=== PATIENT | male | born 1945 | race Caucasian/White ===

== ENCOUNTER 2018-04-13 07:59 | Observation (INO) | payer MEDICAID ==
--- NOTE | 2018-04-13 08:37 | ED PDOC ---
Arrival/HPI - General Historian: Patient, Spouse - History of Present Illness Narrative History of Present Illness (Text): 04/13/18 08:34 Patient is a 72 year old male with past medical history of Hypertension and Diabetes Mellitus who presents to the Emergency department for multiple episodes of coffee ground emesis. Patients spouse is at the bedside supplementing the history. She states that last night patient was complaining of epigastric pain and had multiple episodes of vomiting. Describes the vomitus as coffee ground. States that this has never happened to him before. Denies any recent NSAID use. He is currently recieveing antibiotics and being treated for pneumonia by his PMD. PMD: Dr Rodríguez Time/Duration: 4-6 hours Symptom Course: Unchanged Severity Level: 7, Moderate <Lexi Miles - Last Filed: 04/13/18 12:33> <Hal Mayo - Last Filed: 04/13/18 18:01> - General Chief Complaint: Abdominal Pain Past Medical History - Cardiac Hx Hypertension: Yes - Pulmonary Hx Asthma: Yes - Psychiatric Hx Substance Use: No <Lexi Miles - Last Filed: 04/13/18 12:33> - Provider Review Nursing Documentation Reviewed: Yes <Hal Mayo - Last Filed: 04/13/18 18:01> Family/Social History Smoking Status: Never Smoked Hx Alcohol Use: No Hx Substance Use: No <Lexi Miles - Last Filed: 04/13/18 12:33> - Physician Review Nursing Documentation Reviewed: Yes Family/Social History: No Known Family HX <Hal Mayo - Last Filed: 04/13/18 18:01> Allergies/Home Meds <Lexi Miles - Last Filed: 04/13/18 12:33> <Hal Mayo - Last Filed: 04/13/18 18:01> Allergies/Adverse Reactions: Allergies No Known Allergies Allergy (Verified 04/13/18 08:03) Home Medications: Home Meds Medication Instructions Recorded Confirmed RX: Lisinopril [Zestril] 10 mg PO DAILY 01/29/16 04/13/18 Review of Systems - Review of Systems Constitutional: Fatigue. absent: Fevers Eyes: absent: Vision Changes ENT: absent: Hearing Changes Respiratory: absent: SOB, Cough Cardiovascular: absent: Chest Pain, Palpitations Gastrointestinal: Abdominal Pain, Nausea, Vomiting. absent: Constipation, Diarrhea, Hematochezia Genitourinary Male: absent: Dysuria Skin: absent: Rash Neurological: absent: Headache <JdLexi - Last Filed: 04/13/18 12:33> Physical Exam Vital Signs Reviewed: Yes Vital Signs Temp Pulse Resp BP Pulse Ox 04/13/18 08:01 98.1 F 106 H 20 145/85 93 L Temperature: Afebrile Blood Pressure: Hypertensive Pulse: Tachycardic Respiratory Rate: Normal Pain Distress: Moderate Mental Status: Positive for: Alert and Oriented X 3 Finger Stick Blood Glucose: 151 - Systems Exam Head: Present: Atraumatic, Normocephalic Pupils: Present: PERRL Extroacular Muscles: Present: EOMI Conjunctiva: Present: Normal Mouth: Present: Moist Mucous Membranes Neck: Present: Normal Range of Motion Respiratory/Chest: Present: Other (course breath sounds bilaterally). No: Respi ratory Distress, Accessory Muscle Use, Wheezes, Rales, Retracting Cardiovascular: Present: Regular Rate and Rhythm, Normal S1, S2 Abdomen: Present: Normal Bowel Sounds, Other (abdomen is soft). No: Tenderness, Distention, Peritoneal Signs, Rebound, Guarding Back: Present: Normal Inspection. No: CVA Tenderness Upper Extremity: Present: Normal Inspection, Normal ROM. No: Cyanosis, Edema Lower Extremity: Present: Normal Inspection, Normal ROM Skin: Present: Warm, Dry, Normal Color. No: Rashes Psychiatric: Present: Alert, Oriented x 3 <Lexi Miles - Last Filed: 04/13/18 12:33> Vital Signs Temp Pulse Resp BP Pulse Ox 04/13/18 10:23 105 H 16 146/84 99 04/13/18 08:01 98.1 F 106 H 20 145/85 93 L <Hal Mayo - Last Filed: 04/13/18 18:01> Medical Decision Making ED Course and Treatment: 04/13/18 08:38 Patient seen and examined at bedside. Patient reports having multiple episodes of coffee ground emesis that started last night. We will order CBC, CMP, Coags, Type and Screen, Lipase, Troponin, EKG, CXR, CT abd/pelvis with IV contrast, Protonix 80mg IVP. 04/13/18 10:[address] scan. Reports still having epigastric pain. Will order Morphine 2mg IVP. 04/13/18 11:40 Call placed to Hospitalist for admission. Awaiting call back. 04/13/18 11:43 Discussed case with Hospitalist. Will admit the patient to remote telemetry. - RAD Interpretation Narrative RAD Interpretations (Text): 04/13/18 10:56 CXR: borderline cardiomegaly, mild bibasilar atelectasis, elevation of right hemidiaphragm 04/13/18 11:47 CT abd/pelvis: Right renal cyst. Nonobstructing bilateral renal calculi. Prostate gland is enlarged. Recommend correlation with PSA. Radiology Orders: 04/13/18 08:28 CHEST PORTABLE [RAD] Stat 04/13/18 08:30 ABD & PELVIS IV CONTRAST ONLY [CT] Stat - EKG Interpretation EKG Interpretation (Text): 04/13/18 08:41 EKbpm, NSR with 1st degree AV block, no ST-T wave changes Interpreted by ED Physician: Yes Type: 12 lead EKG - Medication Orders Current Medication Orders: Discontinued Medications Pantoprazole Sodium (Protonix Inj) 80 mg IVP STAT STA Stop: 04/13/18 08:26 Last Admin: 04/13/18 08:32 Dose: 80 mg IVP Administration Document 04/13/18 08:32 EB (Rec: 04/13/18 08:32 EB [id number]) Charges for Administration # of IVP Administrations 1 <Lexi Miles - Last Filed: 04/13/18 12:33> ED Course and Treatment: In agreement with resident note, which includes further HPI details. Patient was seen and evaluated with resident, came up with plan and treatment together. 72 y/o M p/w coffee ground emesis. On exam, epigastric tenderness. - Lab Interpretations Lab Results: 04/13/18 08:15 04/13/18 08:15 Lab Results 04/13/18 08:15: PT 10.8, INR 0.94, APTT 24.7 L 04/13/18 08:15: Sodium 142, Potassium 4.0, Chloride 105, Carbon Dioxide 27, Anion Gap 13, BUN 14, Creatinine 0.8, Est GFR ( Amer) > 60, Est GFR (Non- Af Amer) > 60, Random Glucose 145 H, Calcium 9.4, Total Bilirubin 0.2, AST 29, ALT 43, Alkaline Phosphatase 55, Troponin I < 0.01, Total Protein 7.6, Albumin 4.4, Globulin 3.2, Albumin/Globulin Ratio 1.4, Lipase 101 04/13/18 08:15: WBC 5.8, RBC 4.78, Hgb 13.1 L, Hct 40.7 L, MCV 85.1, MCH 27.4, MCHC 32.2, RDW 13.3, Plt Count 170, MPV 11.5 H, Gran % 66.2, Lymph % (Auto) 29.2, [place] % (Auto) 3.0, Eos % (Auto) 1.4 L, Baso % (Auto) 0.2, Gran # 3.82, Lymph # (Auto) 1.7, [place] # (Auto) 0.2, Eos # (Auto) 0.1, Baso # (Auto) 0.01 - RAD Interpretation Radiology Orders: 04/13/18 08:28 CHEST PORTABLE [RAD] Stat 04/13/18 08:30 ABD & PELVIS IV CONTRAST ONLY [CT] Stat - Medication Orders Current Medication Orders: Sodium Chloride (Sodium Chloride 0.9%) 1,000 mls @ 75 mls/hr IV .[id number] KARINA Last Admin: 04/13/18 11:54 Dose: 75 mls/hr eMAR Start Stop Document 04/13/18 11:54 EB (Rec: 04/13/18 11:56 [id number] Intravenous Solution Start Date 04/13/18 Start Time 11:54 Lisinopril (Zestril) 10 mg PO DAILY KARINA Pantoprazole Sodium (Protonix Inj) 40 mg IVP Q12 KARINA Discontinued Medications Morphine Sulfate (Morphine) 2 mg IVP STAT STA Stop: 04/13/18 10:35 Last Admin: 04/13/18 10:42 Dose: 2 mg MAR Pain Assessment Document 04/13/18 10:42 EB (Rec: 04/13/18 10:42 [facility] Pain Reassessment Is this a pain reassessment? No Sleep Is patient sleeping during reassessment? No Presence of Pain Presence of Pain Yes Pain Scale Used Protocol: PSCALES Pain Scale Used Numeric Description Intensity of Pain at present 8 IVP Administration Document 04/13/18 10:42 EB (Rec: 04/13/18 10:[address]) Charges for Administration # of IVP Administrations 1 Re-Assess: HILARY Pain Assessment Document 04/13/18 11:42 EB (Rec: 04/13/18 11:[address]) Pain Reassessment Is this a pain reassessment? Yes Sleep Is patient sleeping during reassessment? No Presence of Pain Presence of Pain Yes Pain Scale Used Protocol: PSCALES Pain Scale Used Numeric Description Intensity of Pain at present 2 Ondansetron HCl (Zofran Inj) 4 mg IVP STAT STA Stop: 04/13/18 09:25 Last Admin: 04/13/18 09:38 Dose: 4 mg IVP Administration Document 04/13/18 09:38 EB (Rec: 04/13/18 09:[address]) Charges for Administration # of IVP Administrations 1 Pantoprazole Sodium (Protonix Inj) 80 mg IVP STAT STA Stop: 04/13/18 08:26 Last Admin: 04/13/18 08:32 Dose: 80 mg IVP Administration Document 04/13/18 08:32 EB (Rec: 04/13/18 08:[address]) Charges for Administration # of IVP Administrations 1 <Hal Mayo - Last Filed: 04/13/18 18:01> Disposition/Present on Arrival - Present on Arrival Any Indicators Present on Arrival: No History of DVT/PE: No History of Uncontrolled Diabetes: No Urinary Catheter: No History of Decub. Ulcer: No History Surgical Site Infection Following: None - Disposition Have Diagnosis and Disposition been Completed?: Yes Disposition Time: 11:59 Patient Plan: Admission, Telemetry <Lexi Miles - Last Filed: 04/13/18 12:33> <Hal Mayo - Last Filed: 04/13/18 18:01> - Disposition Diagnosis: GI bleed Disposition: HOSPITALIZED Patient Problems: Current Active Problems Problem Status Onset GI bleed Acute Condition: FAIR
[2018-04-13 08:56] LABS: BASO # 0.01 K/mm3 (0.0-2.0); BASO % 0.2 % (0.0-3.0); EOS # 0.1 (0.0-0.7); EOS % 1.4 % (1.5-5.0); GRAN # 3.82 (1.4-6.5); GRAN % 66.2 % (50.0-68.0); HEMOGLOBIN 13.1 g/dL (14.0-18.0); LYMPH # 1.7 (1.2-3.4); LYMPH % 29.2 % (22.0-35.0); MEAN CELL VOLUME 85.1 fl (80.0-105.0); MEAN CORPUSCULAR HEMOGLOBIN 27.4 pg (25.0-35.0); MEAN CORPUSCULAR HGB CONC 32.2 g/dl (31.0-37.0); MEAN PLATELET VOLUME 11.5 fl (7.0-11.0); MONO # 0.2 (0.1-0.6); RBC 4.78 10^6/uL (3.5-6.1); RED CELL DISTRIBUTION WIDTH 13.3 % (11.5-14.5); WHITE BLOOD COUNT 5.8 10^3/uL (4.5-11.0)
[2018-04-13 09:00] LABS: INR 0.94; PARTIAL THROMBOPLASTIN TIME 24.7 Seconds (25.1-36.5); PROTHROMBIN TIME 10.8 SECONDS (9.4-12.5)
[2018-04-13 09:03] LABS: ALB/GLOB RATIO 1.4 (1.1-1.8); ALBUMIN 4.4 g/dL (3.0-4.8); ALT/SGPT 43 U/L (7-56); AST/SGOT 29 U/L (17-59); BLOOD UREA NITROGEN 14 mg/dL (7-21); CALCIUM 9.4 mg/dL (8.4-10.5); GFR NON-AFRICAN AMERICAN > 60; LIPASE 101 U/L (23-300)
[2018-04-13 09:20] LABS: TROPONIN I < 0.01 ng/mL
[2018-04-13] MEDS ORDERED: Iohexol 350 MG/100 ML VIAL ONE (09:23)
[2018-04-13] MEDS ORDERED: Morphine 2 mg/ml ISec IVP STA (10:34)
--- NOTE | 2018-04-13 10:54 | RAD ---
HISTORY: dyspnea, coarse breath sounds COMPARISON: None available. TECHNIQUE: Chest, one view. FINDINGS: LUNGS: Mild bibasilar atelectasis. Please note that chest x-ray has limited sensitivity for the detection of pulmonary masses. PLEURA: No significant pleural effusion identified. No definite pneumothorax . CARDIOVASCULAR: Borderline cardiomegaly. No significant atherosclerotic calcification present. OSSEOUS STRUCTURES: Degenerative changes. VISUALIZED UPPER ABDOMEN: Elevation of the right hemidiaphragm. OTHER FINDINGS: None. IMPRESSION: Borderline cardiomegaly. Mild bibasilar atelectasis. Elevation of the right hemidiaphragm.
--- NOTE | 2018-04-13 11:10 | CT ---
Date of service: 04/13/2018 PROCEDURE: CT Abdomen and Pelvis with contrast HISTORY: gi bleed, epigastric pain COMPARISON: CT abdomen and pelvis with IV contrast performed 01/29/16 TECHNIQUE: Contrast dose: 100 mL Omnipaque 350 Radiation dose: Total exam DLP = 262.5 mGy-cm. This CT exam was performed using one or more of the following dose reduction techniques: Automated exposure control, adjustment of the mA and/or kV according to patient size, and/or use of iterative reconstruction technique. FINDINGS: LOWER THORAX: Bibasilar atelectasis. No visible pleural effusion or pneumothorax. Moderate hiatal hernia/distal esophageal wall thickening, and evidence of gastroesophageal reflux. LIVER: Unremarkable. GALLBLADDER AND BILE DUCTS: Unremarkable. PANCREAS: Unremarkable. SPLEEN: Unremarkable. ADRENALS: Unremarkable. KIDNEYS AND URETERS: The kidneys enhance symmetrically. No hydronephrosis or obstructing calculus identified. Tiny nonobstructing bilateral renal calculi measuring up to 4 mm. Right renal cyst. VASCULATURE: No aortic aneurysm. Atherosclerotic calcification or mural plaque present. BOWEL: Stomach is nondistended. Lack of oral contrast limits evaluation for bowel pathology. Bowel loops appear within normal limits of caliber without evidence of obstruction. APPENDIX: The appendix appears within normal limits of caliber. No secondary signs of acute appendicitis. PERITONEUM: No significant free fluid. No definite free air. LYMPH NODES: No bulky adenopathy identified. BLADDER: Unremarkable. REPRODUCTIVE: Prostate gland measures approximately 3.7 x 4.6 cm. BONES: Degenerative changes of the spine. Compression fracture deformity L5. OTHER FINDINGS: Small fat containing umbilical hernia. IMPRESSION: Right renal cyst. Nonobstructing bilateral renal calculi. Prostate gland is enlarged. Recommend correlation with PSA. Additional findings as above.
--- NOTE | 2018-04-13 11:46 | CP.PCM.HP ---
<Trista Guerra - Last Filed: 04/13/18 12:46> History of Present Illness - History of Present Illness History of Present Illness: H&P for HospitalistMelchor PGY3 This is a 72yo male with past medical history of HTN and DM-II who came to ED for multiple episodes of coffee ground emesis. His last episode was this morning prior to coming to the ED. Patient reports he has been on Amoxicillin by Dr. Rodríguez for pneumonia. Patient states he has epigastric abdominal pain that does not radiate. He also is complaining of non-productive cough. He denies chest pain, shortness of breath, diarrhea, dark colored or bloody stool, numbness/tingling, dysuria/hematuria, fever or chills. Patient denies sick contacts or change in diet or NSAID use. He has never had an episode like this before. He had a colonoscopy 6yrs ago in [place] and reports it was normal. Past medical history: HTN, DM-II Past surgical history: Colonoscopy 6yrs ago in [facility] Home meds: Lisinopril 10mg daily Allergies: NKDA Social history: Social EtOH use, denies tobacco or drug abuse. Lives with family Family history: Both parents of "old age" PMD: Dr Rodríguez Present on Admission - Present on Admission Any Indicators Present on Admission: No Review of Systems - Review of Systems All systems: reviewed and no additional remarkable complaints except Review of Systems: 12 point ROS reviewed as per HPI and is otherwise negative. Past Patient History - Past Social History Smoking Status: Never Smoked - CARDIAC Hx Hypertension: Yes - PULMONARY Hx Asthma: Yes - PSYCHIATRIC Hx Substance Use: No - SURGICAL HISTORY Hx Surgeries: No Meds Home Medications: Home Medication List Medication Instructions Recorded Confirmed Type Lisinopril [Zestril] 10 mg PO DAILY 14 Days tab 04/14/18 Rx Ondansetron ODT [Zofran ODT] 4 mg PO Q6H PRN #10 odt 04/14/18 Rx Pantoprazole Sodium [Protonix] 40 mg PO DAILY #14 ect 04/14/18 Rx Allergies/Adverse Reactions: Allergies Allergy/AdvReac Type Severity Reaction Status Date / Time No Known Allergies Allergy Verified 04/13/18 08:03 Physical Exam - Constitutional Appears: No Acute Distress - Head Exam Head Exam: ATRAUMATIC, NORMAL INSPECTION, NORMOCEPHALIC - Eye Exam Eye Exam: Normal appearance, PERRL Pupil Exam: NORMAL ACCOMODATION, PERRL - ENT Exam ENT Exam: Mucous Membranes Moist - Respiratory Exam Respiratory Exam: Rhonchi (LLQ), NORMAL BREATHING PATTERN. absent: Decreased Breath Sounds, Rales, Wheezes, Stridor - Cardiovascular Exam Cardiovascular Exam: Tachycardia, REGULAR RHYTHM, +S1, +S2. absent: Gallop, Rubs, Systolic Murmur - GI/Abdominal Exam GI & Abdominal Exam: Normal Bowel Sounds, Soft, Tenderness (epigastric ). absent: Guarding, Rebound, Rigid - Extremities Exam Extremities exam: Positive for: normal inspection. Negative for: calf tenderness, pedal edema - Neurological Exam Neurological exam: Alert, CN II-XII Intact, Oriented x3 - Psychiatric Exam Psychiatric exam: Normal Affect, Normal Mood - Skin Skin Exam: Dry, Warm Results - Vital Signs Recent Vital Signs: Last Vital Signs Temp 98.1 F 04/13/18 08:01 Pulse 105 H 04/13/18 10:23 Resp 16 04/13/18 10:23 BP 146/84 04/13/18 10:23 Pulse Ox 99 04/13/18 10:23 - Labs Result Diagrams: 04/13/18 08:15 04/13/18 08:15 Labs: Laboratory Results - last 24 hr 04/13/18 04/13/18 04/13/18 08:15 08:15 08:15 WBC 5.8 RBC 4.78 Hgb 13.1 L Hct 40.7 L MCV 85.1 MCH 27.4 MCHC 32.2 RDW 13.3 Plt Count 170 MPV 11.5 H Gran % 66.2 Lymph % (Auto) 29.2 Winn % (Auto) 3.0 Eos % (Auto) 1.4 L Baso % (Auto) 0.2 Gran # 3.82 Lymph # (Auto) 1.7 Winn # (Auto) 0.2 Eos # (Auto) 0.1 Baso # (Auto) 0.01 PT 10.8 INR 0.94 APTT 24.7 L Sodium 142 Potassium 4.0 Chloride 105 Carbon Dioxide 27 Anion Gap 13 BUN 14 Creatinine 0.8 Est GFR ( Amer) > 60 Est GFR (Non-Af Amer) > 60 Random Glucose 145 H Calcium 9.4 Total Bilirubin 0.2 AST 29 ALT 43 Alkaline Phosphatase 55 Troponin I < 0.01 Total Protein 7.6 Albumin 4.4 Globulin 3.2 Albumin/Globulin Ratio 1.4 Lipase 101 Assessment & Plan - Assessment and Plan (Free Text) Assessment: 1. Hematemesis - can be secondary to GI bleed v. cough from pneumonia - Hgb stable - Will monitor H/H - GI consulted - hold anticoagulants - Zofran prn, NS@75 - Protonix - Clear liquid diet 2. Pneumonia - Was being treated as outpatient on Amoxicillin (did not finish course) - CXR did not show pneumonia - afebrile, no leukocytosis - Will start Rocephin - Robitussin prn - Duonebs jose and prn 3. HTN - Continue Lisinopril 4. DM-II - Not on medication at home - will check A1c GI ppx: Protonix DVT ppx: SCDs Case seen, discussed and reviewed with Dr. Tamika Guerra PGY3 - Date & Time Date: 04/13/18 Time: 13:00 <Melina Lundberg - Last Filed: 04/14/18 17:18> Results - Vital Signs Recent Vital Signs: Last Vital Signs Temp 98 F 04/14/18 12:00 Pulse 78 04/14/18 12:00 Resp 20 04/14/18 12:00 BP 137/86 04/14/18 12:00 Pulse Ox 95 04/14/18 06:00 - Labs Result Diagrams: 04/14/18 07:50 04/14/18 07:50 Labs: Laboratory Results - last 24 hr 04/13/18 04/13/18 04/13/18 08:10 16:14 17:00 WBC 7.9 D RBC 4.54 Hgb 12.6 L Hct 38.7 L MCV 85.2 MCH 27.8 MCHC 32.6 RDW 13.7 Plt Count 160 MPV 11.2 H Gran % 81.4 H Lymph % (Auto) 13.3 L Winn % (Auto) 5.1 Eos % (Auto) 0.1 L Baso % (Auto) 0.1 Gran # 6.41 Lymph # (Auto) 1.1 L Winn # (Auto) 0.4 Eos # (Auto) 0.0 Baso # (Auto) 0.01 Sodium Potassium Chloride Carbon Dioxide Anion Gap BUN Creatinine Est GFR ( Amer) Est GFR (Non-Af Amer) POC Glucose (mg/dL) 151 H 116 H Random Glucose Calcium Total Bilirubin AST ALT Alkaline Phosphatase Total Protein Albumin Globulin Albumin/Globulin Ratio Alcohol, Quantitative 04/13/18 04/13/18 04/14/18 17:00 21:13 07:39 WBC RBC Hgb Hct MCV MCH MCHC RDW Plt Count MPV Gran % Lymph % (Auto) Winn % (Auto) Eos % (Auto) Baso % (Auto) Gran # Lymph # (Auto) Winn # (Auto) Eos # (Auto) Baso # (Auto) Sodium Potassium Chloride Carbon Dioxide Anion Gap BUN Creatinine Est GFR ( Amer) Est GFR (Non-Af Amer) POC Glucose (mg/dL) 100 89 Random Glucose Calcium Total Bilirubin AST ALT Alkaline Phosphatase Total Protein Albumin Globulin Albumin/Globulin Ratio Alcohol, Quantitative < 10 04/14/18 04/14/18 04/14/18 07:50 07:50 11:08 WBC 5.2 D RBC 4.17 Hgb 11.3 L Hct 35.7 L MCV 85.6 MCH 27.1 MCHC 31.7 RDW 13.7 Plt Count 161 MPV 11.5 H Gran % 48.0 L Lymph % (Auto) 42.2 H Winn % (Auto) 7.5 H Eos % (Auto) 2.3 Baso % (Auto) 0.0 Gran # 2.50 Lymph # (Auto) 2.2 Winn # (Auto) 0.4 Eos # (Auto) 0.1 Baso # (Auto) 0.00 Sodium 139 Potassium 4.2 Chloride 108 H Carbon Dioxide 27 Anion Gap 7 L BUN 13 Creatinine 0.8 Est GFR ( Amer) > 60 Est GFR (Non-Af Amer) > 60 POC Glucose (mg/dL) 88 Random Glucose 97 Calcium 8.7 Total Bilirubin 0.7 AST 21 ALT 33 Alkaline Phosphatase 53 Total Protein 6.6 Albumin 3.6 Globulin 3.0 Albumin/Globulin Ratio 1.2 Alcohol, Quantitative Attending/Attestation - Attestation I have personally seen and examined this patient.: Yes I have fully participated in the care of the patient.: Yes I have reviewed all pertinent clinical information: Yes Notes (Text): 04/14/18 17:12 Attending note; Patient seen and examined with resident in the ER. Patient is alert and awake. Denies any chest pain, shortness of breath. Denies any abdominal pain. Denies any fevers, chills. Patient is a 72 year old male with past medical history of HTN and DM-II who came to ED for multiple episodes of coffee ground emesis. Currently patient denies any abdominal pain. CT abdomen is negative. Hb is stable. Nothing by mouth. Started on IV fluids. Monitor H&H closely. GI evaluation appreciated. Patient had colonoscopy over 6 years ago. No EGD done in the past. Needs outpatient follow up with GI. History of bronchitis; recently treated with amoxicillin. Started on IV Rocephin. Cough; continue Robitussin and DuoNeb treatment. Monitor closely. Upon discharge the patient will follow-up with PMD .
[2018-04-13] MEDS: Sodium Chloride 0.9% 1,000 ML IV SCH (11:54)
[2018-04-13] MEDS ORDERED: guaiFENesin 200 mg/10 ml Syrup UD PO PRN (12:22)
[2018-04-13] MEDS ORDERED: Albuterol-Ipratrop 3 mg / 0.5 (3 ml) UD IH PRN (12:22)
[2018-04-13 13:19] VITALS: BMI 25.6
--- NOTE | 2018-04-13 13:19 | CP.PCM.PN ---
Subjective - Date & Time of Evaluation Date of Evaluation: 04/13/18 Time of Evaluation: 13:14 - Subjective Subjective: The pt was examined and interviewed in ED. [employer] Manager ID#[id number]. Chart reviewed. No sing signs of active, or significant, recent GI bleeding. Continue to monitor. Hgb in 6 hrs. Formal consult to follow. Objective - Vital Signs/Intake and Output Vital Signs (last 24 hours): Temp Pulse Resp BP Pulse Ox 98.1 F 105 H 16 146/84 99 04/13/18 08:01 04/13/18 10:23 04/13/18 10:23 04/13/18 10:23 04/13/18 10:23 - Medications Medications: Current Medications Albuterol/Ipratropium (Duoneb 3 Mg/0.5 Mg (3 Ml) Ud) 3 ml IH Q2H PRN PRN Reason: Shortness of Breath Albuterol/Ipratropium (Duoneb 3 Mg/0.5 Mg (3 Ml) Ud) 3 ml IH [id number] KARINA Guaifenesin (Robitussin) 200 mg PO Q4H PRN PRN Reason: Cough and congestion Sodium Chloride (Sodium Chloride 0.9%) 1,000 mls @ 75 mls/hr IV .[id number] KARINA Last Admin: 04/13/18 11:54 Dose: 75 mls/hr Ceftriaxone Sodium (Rocephin 1 Gram Ivpb) 1 gm in 100 mls @ 100 mls/hr IVPB DAILY KARINA; Protocol Lisinopril (Zestril) 10 mg PO DAILY KARINA Ondansetron HCl (Zofran Inj) 4 mg IVP Q6H PRN PRN Reason: Nausea/Vomiting Pantoprazole Sodium (Protonix Inj) 40 mg IVP Q12 KARINA - Labs Labs: 04/13/18 08:15 04/13/18 08:15 PT 10.8 SECONDS (9.4-12.5) 04/13/18 08:15 INR 0.94 04/13/18 08:15 APTT 24.7 Seconds (25.1-36.5) L 04/13/18 08:15
[2018-04-13] MEDS: cefTRIAXone 1 gm 1 GM/100 ML BAG IVPB SCH (15:29)
[2018-04-13] MEDS: Insulin Reg-LOW-Coverage SC SCH ×2 (16:30→22:04)
[2018-04-13 17:18] LABS: BASO # 0.01 K/mm3 (0.0-2.0); BASO % 0.1 % (0.0-3.0); EOS % 0.1 % (1.5-5.0); GRAN # 6.41 (1.4-6.5); GRAN % 81.4 % (50.0-68.0); HEMOGLOBIN 12.6 g/dL (14.0-18.0); LYMPH # 1.1 (1.2-3.4); LYMPH % 13.3 % (22.0-35.0); MEAN CELL VOLUME 85.2 fl (80.0-105.0); MEAN CORPUSCULAR HEMOGLOBIN 27.8 pg (25.0-35.0); MEAN CORPUSCULAR HGB CONC 32.6 g/dl (31.0-37.0); MEAN PLATELET VOLUME 11.2 fl (7.0-11.0); MONO # 0.4 (0.1-0.6); MONO % 5.1 % (1.0-6.0); RBC 4.54 10^6/uL (3.5-6.1); RED CELL DISTRIBUTION WIDTH 13.7 % (11.5-14.5); WHITE BLOOD COUNT 7.9 10^3/uL (4.5-11.0)
[2018-04-13] MEDS: Albuterol-Ipratrop 3 mg / 0.5 (3 ml) UD IH SCH (20:40)
[2018-04-14 00:13] VITALS: O2SAT 95
[2018-04-14] MEDS: Albuterol-Ipratrop 3 mg / 0.5 (3 ml) UD IH SCH ×3 (02:30→13:06)
[2018-04-14] MEDS: Sodium Chloride 0.9% 1,000 ML IV SCH (02:35)
--- NOTE | 2018-04-14 07:48 | CARD ---
APPROVED REPORT Date of service: 04/13/2018 EKG Measurement Heart [id number] <Conclusion> Sinus rhythm with 1st degree AV block Diffuse ST elevations, possible early repolarization, unchanged from prior ECG 01/29/16
[2018-04-14 08:01] LABS: EOS # 0.1 (0.0-0.7); EOS % 2.3 % (1.5-5.0); GRAN # 2.5 (1.4-6.5); HEMOGLOBIN 11.3 g/dL (14.0-18.0); LYMPH # 2.2 (1.2-3.4); LYMPH % 42.2 % (22.0-35.0); MEAN CELL VOLUME 85.6 fl (80.0-105.0); MEAN CORPUSCULAR HEMOGLOBIN 27.1 pg (25.0-35.0); MEAN CORPUSCULAR HGB CONC 31.7 g/dl (31.0-37.0); MEAN PLATELET VOLUME 11.5 fl (7.0-11.0); MONO # 0.4 (0.1-0.6); MONO % 7.5 % (1.0-6.0); RBC 4.17 10^6/uL (3.5-6.1); RED CELL DISTRIBUTION WIDTH 13.7 % (11.5-14.5); WHITE BLOOD COUNT 5.2 10^3/uL (4.5-11.0)
[2018-04-14 08:18] LABS: ALB/GLOB RATIO 1.2 (1.1-1.8); ALBUMIN 3.6 g/dL (3.0-4.8); ALT/SGPT 33 U/L (7-56); AST/SGOT 21 U/L (17-59); BLOOD UREA NITROGEN 13 mg/dL (7-21); CALCIUM 8.7 mg/dL (8.4-10.5); GFR NON-AFRICAN AMERICAN > 60
--- NOTE | 2018-04-14 09:23 | CP.PCM.PN ---
<Jasmin Da Silva - Last Filed: 04/14/18 09:13> Subjective - Date & Time of Evaluation Date of Evaluation: 04/14/18 Time of Evaluation: 09:13 - Subjective Subjective: Gastroenterology Fellow/PGY6 Progress Note Patient feels well. Resolved abdominal pain. No further episodes of black vomitus since prior to admission. Last bowel movement without melena or hematochezia on Saturday prior to admission. A 12-point review of systems negative except for as above. Objective - Vital Signs/Intake and Output Vital Signs (last 24 hours): Temp Pulse Resp BP Pulse Ox 98.1 F 85 18 138/85 95 04/14/18 06:00 04/14/18 06:00 04/14/18 06:00 04/14/18 06:00 04/14/18 06:00 Intake and Output: 04/14/18 04/14/18 06:59 18:59 Intake Total 1550 Balance 1550 - Medications Medications: Current Medications Albuterol/Ipratropium (Duoneb 3 Mg/0.5 Mg (3 Ml) Ud) 3 ml IH Q2H PRN PRN Reason: Shortness of Breath Albuterol/Ipratropium (Duoneb 3 Mg/0.5 Mg (3 Ml) Ud) 3 ml IH [id number] [facility] Last Admin: 04/14/18 07:35 Dose: 3 ml Guaifenesin (Robitussin) 200 mg PO Q4H PRN PRN Reason: Cough and congestion Sodium Chloride (Sodium Chloride 0.9%) 1,000 mls @ 75 mls/hr IV .[id number] [facility] Last Admin: 04/14/18 02:35 Dose: 75 mls/hr Ceftriaxone Sodium (Rocephin 1 Gram Ivpb) 1 gm in 100 mls @ 100 mls/hr IVPB DAILY [facility]; Protocol Last Admin: 04/13/18 15:29 Dose: 100 mls/hr Insulin Human Regular (Humulin R Low) 0 units SC ACHS [facility]; Protocol Last Admin: 04/13/18 22:04 Dose: Not Given Lisinopril (Zestril) 10 mg PO DAILY [facility] Ondansetron HCl (Zofran Inj) 4 mg IVP Q6H PRN PRN Reason: Nausea/Vomiting Pantoprazole Sodium (Protonix Inj) 40 mg IVP Q12 [facility] Last Admin: 04/13/18 22:05 Dose: 40 mg - Labs Labs: 04/14/18 07:50 04/14/18 07:50 PT 10.8 SECONDS (9.4-12.5) 04/13/18 08:15 INR 0.94 04/13/18 08:15 APTT 24.7 Seconds (25.1-36.5) L 04/13/18 08:15 - Constitutional Appears: Non-toxic, No Acute Distress - Head Exam Head Exam: ATRAUMATIC, NORMOCEPHALIC - Eye Exam Eye Exam: EOMI, PERRL. absent: Scleral icterus Pupil Exam: PERRL. absent: Miosis, Mydriatic - ENT Exam ENT Exam: Mucous Membranes Moist, Normal Oropharynx - Neck Exam Neck Exam: Full ROM, Normal Inspection - Respiratory Exam Respiratory Exam: Clear to Ausculation Bilateral. absent: Rales, Rhonchi, Wheezes - Cardiovascular Exam Cardiovascular Exam: RRR, +S1, +S2. absent: Gallop, Rubs - GI/Abdominal Exam GI & Abdominal Exam: Soft, Normal Bowel Sounds. absent: Distended, Firm, Guarding, Rigid, Tenderness, Organomegaly, Rebound - Rectal Exam Additional comments: brown stool, good tone, no mass lesion noted, hemorrhoids - Extremities Exam Extremities Exam: Normal Inspection. absent: Pedal Edema - Neurological Exam Neurological Exam: Alert, Awake - Psychiatric Exam Psychiatric exam: Normal Affect, Normal Mood - Skin Skin Exam: Dry, Intact, Normal Color, Warm Assessment and Plan - Assessment and Plan (Free Text) Assessment: 72 year old male with PMH of HTN, Diabetes, and failed outpatient therapy for pneumonia presenting with black vomitus. Active treatment of concern for GI bleed and pneumonia. Prior colonoscopy 5-6 years ago endorsed to be normal with recommendation for 10 year surveillance. No prior EGD. Plan: -no signs of active GI bleed, low suspicion for GI bleed -black vomitus likely related to upset stomach with black dillon consumption and antibiotic therapy for pneumonia -H/H stable -hemodilutional component- 2 Liters IVFs received -BUN normal -hemodynamically stable -H2 hussein PRN for indigestion with antibiotic therapy for pneumonia -advance to regular diet -will benefit from outpatient GI follow up for re-assessment of symptoms -Thank you for the opportunity to participate in the care of this patient <Shalom Guerra - Last Filed: 04/14/18 09:30> Objective - Vital Signs/Intake and Output Vital Signs (last 24 hours): Temp Pulse Resp BP Pulse Ox 98.1 F 85 18 138/85 95 04/14/18 06:00 04/14/18 06:00 04/14/18 06:00 04/14/18 06:00 04/14/18 06:00 Intake and Output: 04/14/18 04/14/18 06:59 18:59 Intake Total 1550 Balance 1550 - Medications Medications: Current Medications Albuterol/Ipratropium (Duoneb 3 Mg/0.5 Mg (3 Ml) Ud) 3 ml IH Q2H PRN PRN Reason: Shortness of Breath Albuterol/Ipratropium (Duoneb 3 Mg/0.5 Mg (3 Ml) Ud) 3 ml IH [id number] [facility] Last Admin: 04/14/18 07:35 Dose: 3 ml Guaifenesin (Robitussin) 200 mg PO Q4H PRN PRN Reason: Cough and congestion Sodium Chloride (Sodium Chloride 0.9%) 1,000 mls @ 75 mls/hr IV .[id number] [facility] Last Admin: 04/14/18 02:35 Dose: 75 mls/hr Ceftriaxone Sodium (Rocephin 1 Gram Ivpb) 1 gm in 100 mls @ 100 mls/hr IVPB DAILY [facility]; Protocol Last Admin: 04/13/18 15:29 Dose: 100 mls/hr Insulin Human Regular (Humulin R Low) 0 units SC ACHS [facility]; Protocol Last Admin: 04/13/18 22:04 Dose: Not Given Lisinopril (Zestril) 10 mg PO DAILY [facility] Ondansetron HCl (Zofran Inj) 4 mg IVP Q6H PRN PRN Reason: Nausea/Vomiting Pantoprazole Sodium (Protonix Inj) 40 mg IVP Q12 [facility] Last Admin: 04/13/18 22:05 Dose: 40 mg - Labs Labs: 04/14/18 07:50 04/14/18 07:50 PT 10.8 SECONDS (9.4-12.5) 04/13/18 08:15 INR 0.94 04/13/18 08:15 APTT 24.7 Seconds (25.1-36.5) L 04/13/18 08:15 Attending/Attestation - Attestation I have fully participated in the care of the patient.: Yes I have reviewed all pertinent clinical information, including history, physical exam and plan: Yes Notes (Text): 04/14/18 09:29 DM HTN Vomiting - resolved Anemia without presence of overt bleeding noted - Advance diet as tolerated - Continue to monitor H/H - Continue with once daily PPI therapy - Anti-emetic therapy PRN - No further planned GI intervention, will sign off case. Please reconsult as necessary, thank you.
[2018-04-14] MEDS: Insulin Reg-LOW-Coverage SC SCH ×2 (11:00→14:50)
[2018-04-14] MEDS: cefTRIAXone 1 gm 1 GM/100 ML BAG IVPB SCH (11:09)
--- NOTE | 2018-04-14 12:42 | CP.PCM.DIS ---
<Mandie Fletcher - Last Filed: 04/14/18 12:48> Provider - Provider Date of Admission: 04/13/18 11:45 Attending physician: Melina Lundberg MD Primary care physician: Kamini Rodríguez DO Consults: GI: Dr. Guerra Time Spent in preparation of Discharge (in minutes): 45 Hospital Course - Lab Results Lab Results: Most Recent Lab Values WBC 5.2 10^3/uL (4.5-11.0) D 04/14/18 07:50 RBC 4.17 10^6/uL (3.5-6.1) 04/14/18 07:50 Hgb 11.3 g/dL (14.0-18.0) L 04/14/18 07:50 Hct 35.7 % (42.0-52.0) L 04/14/18 07:50 MCV 85.6 fl (80.0-105.0) 04/14/18 07:50 MCH 27.1 pg (25.0-35.0) 04/14/18 07:50 MCHC 31.7 g/dl (31.0-37.0) 04/14/18 07:50 RDW 13.7 % (11.5-14.5) 04/14/18 07:50 Plt Count 161 10^3/uL (120.0-450.0) 04/14/18 07:50 MPV 11.5 fl (7.0-11.0) H 04/14/18 07:50 Gran % 48.0 % (50.0-68.0) L 04/14/18 07:50 Lymph % (Auto) 42.2 % (22.0-35.0) H 04/14/18 07:50 Garden % (Auto) 7.5 % (1.0-6.0) H 04/14/18 07:50 Eos % (Auto) 2.3 % (1.5-5.0) 04/14/18 07:50 Baso % (Auto) 0.0 % (0.0-3.0) 04/14/18 07:50 Gran # 2.50 (1.4-6.5) 04/14/18 07:50 Lymph # (Auto) 2.2 (1.2-3.4) 04/14/18 07:50 Garden # (Auto) 0.4 (0.1-0.6) 04/14/18 07:50 Eos # (Auto) 0.1 (0.0-0.7) 04/14/18 07:50 Baso # (Auto) 0.00 K/mm3 (0.0-2.0) 04/14/18 07:50 PT 10.8 SECONDS (9.4-12.5) 04/13/18 08:15 INR 0.94 04/13/18 08:15 APTT 24.7 Seconds (25.1-36.5) L 04/13/18 08:15 Sodium 139 mmol/L (132-148) 04/14/18 07:50 Potassium 4.2 mmol/L (3.6-5.0) 04/14/18 07:50 Chloride 108 mmol/L (98-107) H 04/14/18 07:50 Carbon Dioxide 27 mmol/L (21-33) 04/14/18 07:50 Anion Gap 7 (10-20) L 04/14/18 07:50 BUN 13 mg/dL (7-21) 04/14/18 07:50 Creatinine 0.8 mg/dl (0.8-1.5) 04/14/18 07:50 Est GFR ( Amer) > 60 04/14/18 07:50 Est GFR (Non-Af Amer) > 60 04/14/18 07:50 POC Glucose (mg/dL) 88 mg/dL (65-110) 04/14/18 11:08 Random Glucose 97 mg/dL (70-110) 04/14/18 07:50 Hemoglobin A1c 5.9 % (4.2-6.5) 04/13/18 08:50 Calcium 8.7 mg/dL (8.4-10.5) 04/14/18 07:50 Total Bilirubin 0.7 mg/dL (0.2-1.3) 04/14/18 07:50 AST 21 U/L (17-59) 04/14/18 07:50 ALT 33 U/L (7-56) 04/14/18 07:50 Alkaline Phosphatase 53 U/L (38-126) 04/14/18 07:50 Troponin I < 0.01 ng/mL 04/13/18 08:15 Total Protein 6.6 g/dL (5.8-8.3) 04/14/18 07:50 Albumin 3.6 g/dL (3.0-4.8) 04/14/18 07:50 Globulin 3.0 gm/dL 04/14/18 07:50 Albumin/Globulin Ratio 1.2 (1.1-1.8) 04/14/18 07:50 Lipase 101 U/L (23-300) 04/13/18 08:15 Alcohol, Quantitative < 10 mg/dL (0-10) 04/13/18 17:00 - Hospital Course Hospital Course: PGY1 Hospital Course and Discharge Summary for Dr. Lundberg Patient is a 72-year-old Male with past medical history of Hypertension, Type 2 Diabetes Mellitus, who came into [facility] ED with multiple episodes of dark emesis. Patient admitted that his most recent meal consisted of black beans and rice. Patient stated his most recent episode of vomitus was the morning prior to coming to the ED. Patient admitted to mild epigastric abdominal pain that he quantified as 3/10 and non-radiating. Of note, patient also complained of non-productive cough. Patient reported he was recently diagnosed with Pneumonia and was on Amoxicillin (prescribed by Dr. Rodríguez.) Patient stated his most recent colonoscopy was done in [place] about 6 years ago, and was normal. Patient otherwise denied chest pain, shortness of breath, diarrhea, dark colored or bloody stool, numbness/tingling, dysuria/hematuria, fever or chills. Patient denies sick contacts or change in diet or NSAID use. He has never had an episode like this before. (Please see patient's chart for details.) While in the ED, the patient was treated with Zofran , protonix, and morphine. Chest x-ray was obtained and revealed atelectasis. EKG was obtained and revealed 1st degree heart block. Abdominal / Pelvis CT was obtained and revealed right renal cyst, nonobstructiving bilateral renal calculi, and enlarged prostate gland. (Please see complete report for details.) Patient was subsequently admitted to the Medical-Surgical floor for observation and further evaluation. Gastroenterology (Dr. Guerra) was consulted. Low suspicion for GI bleed given normal H/H, no signs of active GI bleed on exam, and black vomitus was likely due to upset stomach, as the patient recently was on antibiotic therapy. Per GI recommendations, patient can follow-up as an out-patient for re-assessment of symptoms. Please see report for complete summary of details. On day of discharge, Patient had no complaints. Patient's symptoms of cough and abdominal pain improved. Patient was hemodynamically stable for discharge to home. Patient agreed. Consultants agreed. Patient was instructed to follow-up with primary care physician within 3-5 days. Patient given both verbal and written instructions. All instructions explained to the patient in detail in Faroese. Patient both understand and agree to all instructions. Please see full chart for more detail. The following are Discharge Instructions provided to Patient: - Please continue home medications: Lisinopril 10mg daily. - Complete course of Amoxicillin that was given to you as outpatient. You have been given a prescription for 1. Protonix 40mg PO daily. This will help reduce stomach acid 2. Zofran 4mg PO as needed for nausea. - Please follow up with Dr. Rodríguez next week to re-check your blood count. - If your symptoms worsen, please go to the nearest emergency department. Translation Provided in Faroese: Por favor contine los medicamentos caseros: Lisinopril 10mg diariamente. Curso completo de amoxicilina que se le administr prisca paciente ambulatorio. Se le james dado michael receta para 1. Protonix 40mg PO diario. [place] ayudar a reducir el cido del estmago. 2. Zofran 4mg PO segn sea necesario para las nuseas. Por favor grady un seguimiento con el Dr. Rodríguez la prxima semana para volver a verificar cruz recuento sanguneo Si susana sntomas empeoran, dirjase al servicio de urgencias ms vira. Patient seen and case discussed in detail with Attending Physician, Dr. Tamika Fletcher PGY1 Discharge Exam - Additional Findings Additional findings: - Constitutional Appears: No Acute Distress - Head Exam Head Exam: ATRAUMATIC, NORMAL INSPECTION, NORMOCEPHALIC - Eye Exam Eye Exam: Normal appearance, PERRL Pupil Exam: NORMAL ACCOMODATION, PERRL - ENT Exam ENT Exam: Mucous Membranes Moist - Respiratory Exam Respiratory Exam: Rhonchi (LLQ), NORMAL BREATHING PATTERN. absent: Decreased Breath Sounds, Rales, Wheezes, Stridor - Cardiovascular Exam Cardiovascular Exam: Tachycardia, REGULAR RHYTHM, +S1, +S2. absent: Gallop, Rubs, Systolic Murmur - GI/Abdominal Exam GI & Abdominal Exam: Normal Bowel Sounds, Soft, Tenderness (epigastric ). absent: Guarding, Rebound, Rigid - Extremities Exam Extremities exam: Positive for: normal inspection. Negative for: calf tenderness, pedal edema - Neurological Exam Neurological exam: Alert, CN II-XII Intact, Oriented x3 - Psychiatric Exam Psychiatric exam: Normal Affect, Normal Mood - Skin Skin Exam: Dry, Warm Discharge Plan - Discharge Medications Prescriptions: Pantoprazole Sodium [Protonix] 40 mg PO DAILY #14 ect Lisinopril [Zestril] 10 mg PO DAILY 14 Days tab Ondansetron ODT [Zofran ODT] 4 mg PO Q6H PRN #10 odt PRN Reason: Nausea/Vomiting - Follow Up Plan Condition: FAIR Disposition: HOME/ ROUTINE Instructions: Acute Abdomen (Belly Pain), Adult (DC), Gastrointestinal Bleeding (DC), Nausea and Vomiting, Adult (DC) Additional Instructions: Please continue home medications: Lisinopril 10mg daily. Complete course of Amoxicillin that was given to you as outpatient. You have been given a prescription for 1. Protonix 40mg PO daily. This will help reduce stomach acid 2. Zofran 4mg PO as needed for nausea. Please follow up with Dr. Rodríguez next week to re-check your blood count. If your symptoms worsen, please go to the nearest emergency department. Por favor contine los medicamentos caseros: Lisinopril 10mg diariamente. Curso completo de amoxicilina que se le administr prisca paciente ambulatorio. Se le james dado michael receta para 1. Protonix 40mg PO diario. [place] ayudar a reducir el cido del estmago. 2. Zofran 4mg PO segn sea necesario para las nuseas. Por favor grady un seguimiento con el Dr. Rodríguez la prxima semana para volver a verificar cruz recuento sanguneo Si susana sntomas empeoran, dirjase al servicio de urgencias ms vira. Nursing if your symptoms return, return to the nearest emergency room or call 911, See care notes provided for for further instructions. Referrals: Kamini Rodríguez DO [Primary Care Provider] - Follow up with primary <Melina Lundberg - Last Filed: 04/14/18 17:21> Provider - Provider Date of Admission: 04/13/18 11:45 Attending physician: Melina Lundberg MD Primary care physician: Kamini Rodríguez DO Hospital Course - Lab Results Lab Results: Most Recent Lab Values WBC 5.2 10^3/uL (4.5-11.0) D 04/14/18 07:50 RBC 4.17 10^6/uL (3.5-6.1) 04/14/18 07:50 Hgb 11.3 g/dL (14.0-18.0) L 04/14/18 07:50 Hct 35.7 % (42.0-52.0) L 04/14/18 07:50 MCV 85.6 fl (80.0-105.0) 04/14/18 07:50 MCH 27.1 pg (25.0-35.0) 04/14/18 07:50 MCHC 31.7 g/dl (31.0-37.0) 04/14/18 07:50 RDW 13.7 % (11.5-14.5) 04/14/18 07:50 Plt Count 161 10^3/uL (120.0-450.0) 04/14/18 07:50 MPV 11.5 fl (7.0-11.0) H 04/14/18 07:50 Gran % 48.0 % (50.0-68.0) L 04/14/18 07:50 Lymph % (Auto) 42.2 % (22.0-35.0) H 04/14/18 07:50 Garden % (Auto) 7.5 % (1.0-6.0) H 04/14/18 07:50 Eos % (Auto) 2.3 % (1.5-5.0) 04/14/18 07:50 Baso % (Auto) 0.0 % (0.0-3.0) 04/14/18 07:50 Gran # 2.50 (1.4-6.5) 04/14/18 07:50 Lymph # (Auto) 2.2 (1.2-3.4) 04/14/18 07:50 Garden # (Auto) 0.4 (0.1-0.6) 04/14/18 07:50 Eos # (Auto) 0.1 (0.0-0.7) 04/14/18 07:50 Baso # (Auto) 0.00 K/mm3 (0.0-2.0) 04/14/18 07:50 PT 10.8 SECONDS (9.4-12.5) 04/13/18 08:15 INR 0.94 04/13/18 08:15 APTT 24.7 Seconds (25.1-36.5) L 04/13/18 08:15 Sodium 139 mmol/L (132-148) 04/14/18 07:50 Potassium 4.2 mmol/L (3.6-5.0) 04/14/18 07:50 Chloride 108 mmol/L (98-107) H 04/14/18 07:50 Carbon Dioxide 27 mmol/L (21-33) 04/14/18 07:50 Anion Gap 7 (10-20) L 04/14/18 07:50 BUN 13 mg/dL (7-21) 04/14/18 07:50 Creatinine 0.8 mg/dl (0.8-1.5) 04/14/18 07:50 Est GFR ( Amer) > 60 04/14/18 07:50 Est GFR (Non-Af Amer) > 60 04/14/18 07:50 POC Glucose (mg/dL) 88 mg/dL (65-110) 04/14/18 11:08 Random Glucose 97 mg/dL (70-110) 04/14/18 07:50 Hemoglobin A1c 5.9 % (4.2-6.5) 04/13/18 08:50 Calcium 8.7 mg/dL (8.4-10.5) 04/14/18 07:50 Total Bilirubin 0.7 mg/dL (0.2-1.3) 04/14/18 07:50 AST 21 U/L (17-59) 04/14/18 07:50 ALT 33 U/L (7-56) 04/14/18 07:50 Alkaline Phosphatase 53 U/L (38-126) 04/14/18 07:50 Troponin I < 0.01 ng/mL 04/13/18 08:15 Total Protein 6.6 g/dL (5.8-8.3) 04/14/18 07:50 Albumin 3.6 g/dL (3.0-4.8) 04/14/18 07:50 Globulin 3.0 gm/dL 04/14/18 07:50 Albumin/Globulin Ratio 1.2 (1.1-1.8) 04/14/18 07:50 Lipase 101 U/L (23-300) 04/13/18 08:15 Alcohol, Quantitative < 10 mg/dL (0-10) 04/13/18 17:00 Attending/Attestation - Attestation I have personally seen and examined this patient.: Yes I have fully participated in the care of the patient.: Yes I have reviewed all pertinent clinical information, including history, physical exam and plan: Yes Notes (Text): 04/14/18 17:19 Attending note; Patient seen and examined with resident. Patient's and daughter by the bedside. Patient is alert and awake. Denies any chest pain, shortness of breath. Denies any abdominal pain. Denies any fevers, chills. Denies any further nausea vomiting since admission. Patient is a 72 year old male with past medical history of HTN and DM-II who came to ED for multiple episodes of coffee ground emesis. Currently patient denies any abdominal pain. CT abdomen is negative. Hb is stable. GI evaluation appreciated. Currently tolerating diet. Patient will be discharged home with close outpatient follow up with GI. History of bronchitis; recently treated with amoxicillin. Cough; continue Robitussin prn. Continue Protonix and Zofran when necessary. Upon discharge the patient will follow-up with PMD . The diagnosis, follow-up plan discussed with patient and patient's family in detail. 04/14/18 17:20
[2018-04-14 14:04] VITALS: BP 137/86; PULSE 78; RESP 20; TEMP 98
--- NOTE | 2018-04-15 16:09 | PQF ---
PROVIDER RESPONSE TEXT: patient has a history of asthma mild intermittent type. REVIEWER QUERY TEXT: Asthma Specificity and Type Asthma is documented in the Medical Record. Please specify the type and severity of asthma and indic ate if this is associated with exacerbation or status asthmaticus. Such as: -- Mild intermittent -- Mild persistent -- Moderate persistent -- Severe persistent -- Exercise induced bronchospasm -- Cough variant asthma -- Other, please specify The patient's Clinical Indicators include: History of asthma is documented, trated on this admission with albuterol. Please see below. Thank you . Query created by: Agustina Leon on 04/15/2018 3:50 PM Electronically signed by: Melina Lundberg MD 04/15/2018 4:06 PM
== END 2018-04-14 17:00 | disposition home or self-care (01) ==
LOC: ED 07:59 → ERH 11:45 → INTOOBSV 11:45 → ERH 12:11 → 2RNO 13:17
PROVIDERS: ADMIT Internal Medicine; ATTEND Internal Medicine
DX: K92.0 Hematemesis (principal); J18.9 Pneumonia, unspecified organism; D64.9 Anemia, unspecified; E11.9 Type 2 diabetes mellitus without complications; I10 Essential (primary) hypertension; J45.20 Mild intermittent asthma, uncomplicated; Z79.899 Other long term (current) drug therapy; I44.0 Atrioventricular block, first degree; J45.909 Unspecified asthma, uncomplicated; J98.11 Atelectasis; N20.0 Calculus of kidney; N28.1 Cyst of kidney, acquired; N40.0 Benign prostatic hyperplasia without lower urinary tract symptoms
CPT/HCPCS: 36415; 71045; 74177; 80053; 80320; 82948; 83036; 83690; 84484; 85025; 85610; 85730; 93005; 94640; 94760; 96374; 96375; 99285; C9113; G0378; J0696; J2270; J2405; J7030; Q9967